=== PATIENT | male | born 1945 | race Two or more races ===

== ENCOUNTER → 2024-09-17 | Outpatient (CLI) | payer MEDICARE, MEDICAID, SELFPAY ==
--- NOTE | 2024-09-17 | XR_ITS ---
Examination: Foot, left, 3 views Technique: AP, oblique, lateral views foot, 3 views Date and time of exam: September 17, 2024 1212 hours INDICATIONS: Left foot swelling and pain beginning one year ago. FINDINGS: Severe osteopenia No fracture No cortical bone destruction 12 mm plantar bony calcaneal spur 4 mm posterior bony calcaneal spur Soft tissue vascular calcification IMPRESSION: No fracture No cortical bone destruction Large plantar bony calcaneal spur
[2024-09-17 13:10] LABS: Basophils # (Auto) 0.1 Thou/mm3 (0.0-0.2); Basophils % (Auto) 1 % (0-2.5); Eosinophils # (Auto) 0.1 Thou/mm3 (0.0-0.5); Eosinophils % (Auto) 1 % (0-10); Hemoglobin 13.6 g/dL (13.5-16.0); Immature Granulocytes % (Auto) 0 % (0-0); Immature Granulocytes Auto 0.03 Thou/mm3 (0.00-0.00); Lymphocytes # (Auto) 1.5 Thou/mm3 (1.0-4.8); Lymphocytes % (Auto) 19 % (10-50); Mean Corpuscular Hemoglobin 30.9 pg (25.0-35.0); Mean Corpuscular Volume 91 fL (80-100); Monocytes # (Auto) 0.6 Thou/mm3 (0.0-0.8); Monocytes % (Auto) 8 % (0-12); Neutrophils # (Auto) 5.4 Thou/mm3 (1.8-7.7); Neutrophils % (Auto) 71 % (37-80); Nucleated Red Blood Cell % 0 /100 WBC (0); Platelet Count 277 Thou/mm3 (140-440); RDW Standard Deviation 46.5 fL (35.1-43.9); White Blood Count 7.6 Thou/mm3 (3.8-10.6)
[2024-09-17 13:21] LABS: Glucose Estimated Average 235 mg/dL (80-131); Hemoglobin A1C 9.8 % Hgb (4.8-6.0)
[2024-09-17 13:30] LABS: Alanine Aminotransferase 27 U/L (10-49); Albumin, Serum 4.3 gm/dL (3.4-4.8); Albumin/Globulin Ratio 1.7 (1.2-2.2); Alkaline Phosphatase 101 U/L (46-116); Anion Gap 8 (7-16); Aspartate Amino Transferase 20 U/L (0-34); BUN/Creatinine Ratio 29 Ratio (12-20); Bilirubin,Total 0.6 mg/dL (0.3-1.2); Blood Urea Nitrogen 23 mg/dL (9-23); Calcium 9.8 mg/dL (8.3-10.6); Calcium (Corrected) 9.8 mg/dL (8.5-10.1); Carbon Dioxide 26.7 mMol/L (20.0-31.0); Chloride 104 mMol/L (98-107); Creatinine (Component) 0.8 mg/dL (0.6-1.3); Globulin 2.5 gm/dL (2.3-3.5); Glucose 184 mg/dL (74-106); Osmolality,Calculated 286 (275-295); Potassium 4.7 mMol/L (3.4-5.1); Sodium 139 mMol/L (136-145); Total Protein 6.8 gm/dL (5.7-8.2); eGFR > 60 See Note
== END | disposition home or self-care (01) ==
LOC: CDIM 11:23 → COPL 12:40
PROVIDERS: Podiatrist; PCP Family Medicine; Referring Provider Nurse Practitioner Family; Visit Provider Radiology Diagnostic Radiology
DX: M77.32 Calcaneal spur, left foot (principal); I10 Essential (primary) hypertension; E11.65 Type 2 diabetes mellitus with hyperglycemia
CPT/HCPCS: 36415; 73630; 80053; 83036; 85025

== ENCOUNTER 2024-10-16 11:24 | Emergency (ER) | payer MEDICARE, MEDICAID, SELFPAY ==
[2024-10-16 11:35] VITALS: BP 119/75; PULSE 89; RESP 18; TEMP 36.6; O2SAT 92; BMI 35.2
--- NOTE | 2024-10-16 11:37 | XR_ITS ---
Examination: PA chest single view TECHNIQUE: Upright PA chest single view Exam date and time: October 16, 2024 1151 hours Comparison July 15, 2024 INDICATIONS: Shortness of breath beginning 3 weeks ago, history shoulder fracture FINDINGS: Mild prominence left ventricle Opacity left base consistent with pneumonia Cardiac leads satisfactory position No pulmonary edema IMPRESSION: Mild pneumonia left base
--- NOTE | 2024-10-16 11:40 | PD.EDRME ---
Rapid Medical Screening Exam RME Arrival date/time: 10/16/24 11:24 78-year-old male with history of hypertension diabetes and CHF presents to the emergency department today with complaints of shortness of breath Per the patient's son they called Dr. Wang's office prior to coming to the ER Chief Complaint: Shortness of Breath/Dyspnea Vital signs: Vital Signs Temperature 97.9 F 10/16/24 11:35 Pulse Rate 89 10/16/24 11:35 Respiratory Rate 18 10/16/24 11:35 Blood Pressure 119/75 10/16/24 11:35 Pulse Oximetry (%) 92 L 10/16/24 11:35 Oxygen Delivery Method Room Air 10/16/24 11:35
[2024-10-16 12:16] LABS: Basophils % (Auto) 1 % (0-2.5); Eosinophils # (Auto) 0.1 Thou/mm3 (0.0-0.5); Eosinophils % (Auto) 1 % (0-10); Hematocrit 39.8 % (41.0-53.0); Hemoglobin 13.8 g/dL (13.5-16.0); Immature Granulocytes % (Auto) 0 % (0-0); Immature Granulocytes Auto 0.02 Thou/mm3 (0.00-0.00); Lymphocytes # (Auto) 1.7 Thou/mm3 (1.0-4.8); Lymphocytes % (Auto) 25 % (10-50); Mean Corpuscular HGB Conc 34.7 g/dl (31.0-37.0); Mean Corpuscular Volume 89 fL (80-100); Monocytes # (Auto) 0.6 Thou/mm3 (0.0-0.8); Monocytes % (Auto) 8 % (0-12); Neutrophils # (Auto) 4.3 Thou/mm3 (1.8-7.7); Neutrophils % (Auto) 65 % (37-80); Nucleated Red Blood Cell % 0 /100 WBC (0); Platelet Count 231 Thou/mm3 (140-440); RDW Standard Deviation 44.4 fL (35.1-43.9); Red Blood Count 4.45 Miln/mm3 (4.50-5.90); White Blood Count 6.7 Thou/mm3 (3.8-10.6)
[2024-10-16 12:35] LABS: INR 1.3 (0.9-1.3); Partial Thromboplastin Time 37.3 Seconds (22.0-36.0)
[2024-10-16 12:37] LABS: B-Type Natriuretic Peptide 137 pg/mL (0-100)
[2024-10-16 12:38] LABS: Alanine Aminotransferase 19 U/L (10-49); Albumin, Serum 4.2 gm/dL (3.4-4.8); Albumin/Globulin Ratio 1.7 (1.2-2.2); Alkaline Phosphatase 107 U/L (46-116); Anion Gap 8 (7-16); Aspartate Amino Transferase 17 U/L (0-34); BUN/Creatinine Ratio 22 Ratio (12-20); Bilirubin,Total 0.5 mg/dL (0.3-1.2); Blood Urea Nitrogen 20 mg/dL (9-23); Calcium 9.3 mg/dL (8.3-10.6); Calcium (Corrected) 9.3 mg/dL (8.5-10.1); Carbon Dioxide 26.1 mMol/L (20.0-31.0); Chloride 102 mMol/L (98-107); Creatinine (Component) 0.9 mg/dL (0.6-1.3); Globulin 2.5 gm/dL (2.3-3.5); Glucose 354 mg/dL (74-106); Magnesium 1.8 mg/dL (1.6-2.6); Osmolality,Calculated 288 (275-295); Potassium 5.2 mMol/L (3.4-5.1); Sodium 136 mMol/L (136-145); Total Protein 6.7 gm/dL (5.7-8.2); Troponin I < 0.020 ng/mL (0.0-0.045); eGFR > 60 See Note
[2024-10-16 15:01] VITALS: BP 124/76; PULSE 84; RESP 20; TEMP 36.8; O2SAT 95
--- NOTE | 2024-10-16 15:06 | PD.EDSOB ---
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 Wang's office prior to coming to the ER DR. LOWE MAIN ED EVALUATION: 78 year old male with past medical history significant for hypertension, diabetes, hyperlipidemia, on blood thinners presents to the Emergency Department with complaints of shortness of breath and nonradiating substernal chest pain. Patient states that his shortness of breath is worse with walking short distances. States he feels short of breath then anxious after walking. Sees Dr. Wang cardiology. Symptoms are mild to moderate. Denies cough, fever. Related Data Home Medications ?Medication ?Instructions ?Recorded ?Confirmed gabapentin 100 mg capsule 300 mg PO QDAY 06/24/21 07/22/24 lovastatin 40 mg tablet 40 mg PO QPM 06/24/21 07/22/24 insulin glargine 100 unit/mL 40 unit subcut QDAY 10/07/21 07/22/24 subcutaneous solution (Lantus U-100 Insulin) insulin human U-100 NPH-regulr 30 unit subcut QDAY 10/07/21 07/22/24 70-30 mix 100 unit/mL subcutaneous susp (Humulin 70/30 U-100 Insulin) lisinopril 10 mg tablet 10 mg PO DAILY 11/12/21 07/22/24 carvedilol 25 mg tablet 25 mg PO BID 04/26/22 07/22/24 memantine 10 mg tablet 10 mg PO BID 04/26/22 07/22/24 finasteride 5 mg tablet 5 mg PO QDAY 02/28/23 07/22/24 metformin 1,000 mg tablet 1,000 mg PO BID 02/28/23 07/22/24 tamsulosin 0.4 mg capsule 0.8 mg PO QHS 02/28/23 07/22/24 oxybutynin chloride 5 mg tablet 5 mg PO BID 03/30/23 07/22/24 rivaroxaban 15 mg tablet (Xarelto) 15 mg PO QDAY 03/30/23 07/22/24 donepezil 5 mg tablet 5 mg PO QDAY 08/28/23 07/22/24 duloxetine 60 mg capsule,delayed 60 mg PO QDAY 07/22/24 07/22/24 release Allergies Allergy/AdvReac Type Severity Reaction Status Date / Time No Known Allergies Allergy Verified 10/16/24 11:26 Review of Systems Review of Systems Systems Reviewed: All systems reviewed, normal except as documented Narrative Review of Systems: GEN: No fever, no chills, no weight loss EYES: No discharge, no visual changes, no pain HEENT: No ear pain, no congestion, no sore throat PULM: + shortness of breath, no cough, no congestion CV: + chest pain, no dyspnea on exertion, no palpitations GI: No nausea, no vomiting, no diarrhea, no pain, no constipation : No frequency, no urgency and no dysuria MUSC/SKEL: No joint pain, no back pain SKIN: No rash PSYCH: No hallucinations, no depression HEME/LYMPH: No easy bleeding or bruising tendencies NEURO: No weakness, no headache Past Medical History Past Medical History NEUROLOGIC: Negative Neurological Disorders or Seizures CARDIAC: Positive Atrial Fibrillation, Hypercholesterolemia and Hypertension; Negative Cardiac Disorders or Congestive Heart Failure RESPIRATORY: Positive Chronic Obstructive Pulmonary Disease (COPD) and Sleep Apnea; Negative Asthma GASTROINTESTINAL: Positive Gastrointestinal Disorders, Gastroesophageal Reflux Disease and Obesity; Negative Hepatitis GENITOURINARY: Positive Genitourinary Disorders and Benign Prostatic Hyperplasia; Negative Renal Disease MUSCULOSKELETAL: Positive Musculoskeletal Disorders and Fractures ENT: Positive Cataracts ENDOCRINE: Positive Endocrine Disorders and Diabetes Mellitus Type 2; Negative Diabetes Mellitus Type 1 HEMATOLOGIC: Positive Anemia; Negative Blood Disorders, Sickle Cell Disease or Clotting Problems OTHER HISTORY: Positive Hospitalization and Falls; Negative Autoimmune Disease, Shingles, Blood Transfusions, Blood Transfusion Reaction, Anesthesia Reactions, Organ Transplant, Chemotherapy, Radiation Therapy, MRSA, Chicken Pox, Measles, Mumps or Cancer Family History FAMILY HISTORY: Positive Family Cardiac Disorders Surgical History SURGICAL: Positive Cardiac Surgery, Pacemaker and Joint Replacement; Negative Endocrine Surgery, Abdominal Surgery, Neurologic Surgery, Vasectomy or Organ Transplant Social History SMOKING STATUS: Never smoker ED Exam General Limitations: Present no limitations General appearance: Present alert and in no apparent distress Head Head exam: Present atraumatic Eye Eye exam: Present normal appearance, PERRL and EOMI ENT ENT exam: Present normal exam, normal oropharynx and mucous membranes moist Neck Neck exam: Present normal inspection, full ROM and trachea midline Chest Chest inspection: Present normal inspection and symmetric chest wall rise Respiratory Respiratory exam: Present normal lung sounds bilaterally Cardiovascular Cardiovascular exam: Present regular rate, normal rhythm and normal heart sounds Abdominal Exam Abdominal exam: Present soft and normal bowel sounds Extremities Exam Extremities exam: Present normal inspection, full ROM and pedal edema (R>L) Back Exam Back exam: Present normal inspection and full ROM Neurological Exam Neurological exam: Present alert, oriented X3 and CN II-XII intact Psychiatric Psychiatric exam: Present normal affect and normal mood Skin Skin exam: Present warm, dry, intact and normal color Course Quality Measures none Orders Category Date Time Status Health Care Technician NOW Care 10/16/24 11:37 Completed EKG (ED ONLY) *Do not use* NOW Care 10/16/24 11:37 Completed EKG (ED Only) Stat Exams 10/16/24 11:37 Ordered XR chest 1V portable Stat Exams 10/16/24 11:37 Completed B-Type Natriuretic Peptide Stat Lab 10/16/24 12:08 Completed CBC Stat Lab 10/16/24 12:08 Completed Comprehensive Metabolic Panel Stat Lab 10/16/24 12:08 Completed D-Dimer Stat Lab 10/16/24 15:50 Completed Magnesium Stat Lab 10/16/24 12:08 Completed Partial Thromboplastin Time Stat Lab 10/16/24 12:08 Completed Prothrombin Time with INR Stat Lab 10/16/24 12:08 Completed Troponin I Stat Lab 10/16/24 12:08 Completed Troponin I Stat Lab 10/16/24 15:50 Completed Vital Signs Vital signs: Vital Signs Temperature 97.9 F 10/16/24 11:35 Pulse Rate 89 10/16/24 11:35 Respiratory Rate 18 10/16/24 11:35 Blood Pressure 119/75 10/16/24 11:35 Pulse Oximetry (%) 92 L 10/16/24 11:35 Oxygen Delivery Method Room Air 10/16/24 11:35 Shortness of Breath / Dyspnea MDM Narrative MDM Narrative:: IMae, bethel scribing for and in the presence of Dr. Lowe. Patient data External records reviewed:: [facility] previous records (Reviewed last urology note by Dr. Younger, dated 07/25/24.) Clinical information provided by:: patient and family Social determinants that could affect healthcare access:: none Patient has the following chronic illnesses:: Hypertension, diabetes, hyperlipidemia, on blood thinners How is presenting disease/condition affected by chronic disease/condition?: exacerbated by Evaluation data The following diagnostics were reviewed and interpreted by me:: lab results and radiology exam(s) Lab and/or radiology exams considered but not ordered:: none Interpretation Summary: Procedure(s): XR chest 1V portable Accession Number(s): [id number] cc: Cira JAKCSON),Momo PATEL; Jason Mace MD~ Examination: PA chest single view TECHNIQUE: Upright PA chest single view Exam date and time: October 16, 2024 1151 hours Comparison July 15, 2024 INDICATIONS: Shortness of breath beginning 3 weeks ago, history shoulder fracture FINDINGS: Mild prominence left ventricle Opacity left base consistent with pneumonia Cardiac leads satisfactory position No pulmonary edema IMPRESSION: Mild pneumonia left base Dictated By: Jason Mace MD Medications / Prescriptions Medications or Prescriptions considered but not ordered:: none Medication administrations:: see above if any Consultations Consultation(s) initiated? (list below): Yes Consultation #1 (Physician, Specialty, Details): Discussed with Dr. Wang. Reviewed results. Per Dr. Wang patient may follow up in his office on Monday. Advised nurse to tell patient to call office for appointment time. Diagnosis Shortness of Breath Differential Diagnosis: acute exacerbation of chronic obstructive airways disease, congestive heart failure, community acquired pneumonia and pulmonary embolism Most likely diagnosis given after review of the tests above:: Dyspnea Chest pain Admission Indicated Admission indicated?: not indicated Admission Request Was there a request for admission?: No Disposition Plan Disposition Plan: Discharge Discharge Attestation Discharge Attestation: The patient and all family members were given an opportunity to ask questions and understood the discharge instructions. Discharge instructions specifically effects, indications for sooner follow up or return to the emergency department, and the expected course of current diagnosis. Patient condition: Stable Discharge Plan Plan Patient Disposition: HOME (Self Care) Prescriptions/Referrals Prescriptions/Med Rec: No Action carvedilol 25 mg tablet 25 mg PO BID Rx Instructions: must administer with a meal/food memantine 10 mg tablet 10 mg PO BID metformin 1,000 mg tablet 1,000 mg PO BID tamsulosin 0.4 mg capsule 0.8 mg PO QHS finasteride 5 mg tablet 5 mg PO QDAY donepezil 5 mg tablet 5 mg PO QDAY duloxetine 60 mg capsule,delayed release(DR/EC) 60 mg PO QDAY insulin glargine [Lantus U-100 Insulin] 100 unit/mL solution 40 unit SUBCUT QDAY Rx Instructions: sliding scale Humulin 70/30 U-100 Insulin 100 unit/mL (70-30) suspension 30 unit SUBCUT QDAY Rx Instructions: sliding scale lovastatin 40 mg tablet 40 mg PO QPM Patient Comments: TOME MIGUELINA CULLENA TODOUlisses LOS D AL [employer] gabapentin 100 mg capsule 300 mg PO QDAY Patient Comments: TAKE 1 CAPSULE 3 TIMES A DAY BY ORAL ROUTE FOR 30 DAYS. lisinopril 10 mg tablet 10 mg PO DAILY oxybutynin chloride 5 mg Tablet 5 mg PO BID Xarelto 15 mg Tablet 15 mg PO QDAY Rx Instructions: must administer with evening meal Referrals: Stefano Galicia[facility]MD [Primary Care Provider] - In 1 week Hakan Wang MD [Physician] - None Problem List Clinical Impression: Dyspnea, Chest pain Patient/Caregiver Discharge Instructions Education Materials: ED Chest Pain, Uncertain Cause, ED Shortness of Breath (Dyspnea) Additional Instructions: Follow up with Dr. Wang. Call office for appointment. Print Language: [place] Island[place] Stand Alone Forms: [employer] Award Info., Patient Portal Info Letter
[2024-10-16 15:11] VITALS: BP 116/76; PULSE 84; RESP 16; TEMP 36.7; O2SAT 93
[2024-10-16 16:24] LABS: D-Dimer 277 ng/mL (<600)
[2024-10-16 16:31] LABS: Troponin I < 0.020 ng/mL (0.0-0.045)
--- NOTE | 2024-10-16 17:31 | PC.NURSE ---
DC paperwork given to pt. and son. Pt. son states that the reason they were here is to get an echocardiogram per [employer]. He also wants to know if he has got pneumonia per staff member that disclosed results. Per Dr. Lowe, she did not know about echocardiogram and states he does not have pneumonia. Dr. Lowe called [employer] and states no need for echo at this time. Information given to pt. and son and DC paperwork explained.
== END 2024-10-16 17:42 | disposition home or self-care (01) ==
PROVIDERS: Nurse Practitioner Primary Care; Emergency Provider Emergency Medicine; PCP Family Medicine
DX: J44.0 Chronic obstructive pulmonary disease with (acute) lower respiratory infection (principal); J18.9 Pneumonia, unspecified organism; R07.9 Chest pain, unspecified; I11.0 Hypertensive heart disease with heart failure; I50.9 Heart failure, unspecified; E78.00 Pure hypercholesterolemia, unspecified; I48.91 Unspecified atrial fibrillation; Z79.01 Long term (current) use of anticoagulants
CPT/HCPCS: 36415; 71045; 80053; 83735; 83880; 84484; 85025; 85379; 85610; 85730; 93005; 99284

== ENCOUNTER → 2024-10-24 | Outpatient (CLI) | payer MEDICARE, MEDICAID, SELFPAY ==
--- NOTE | 2024-10-24 14:03 | XR_ITS ---
Examination: PA lateral chest 2 views TECHNIQUE: Upright PA lateral chest 2 views Exam date and time: October 24, 2024 1427 hours Comparison October 16, 2024 INDICATIONS: Coughing shortness of breath congestion this week, left base pneumonia on chest film October 16, 2024 FINDINGS: Persistent pneumonia left base Mild enlargement cardiac contour Cardiac leads satisfactory position Also mild pneumonia right base Moderate osteopenia IMPRESSION: Bibasilar pneumonia
== END | disposition home or self-care (01) ==
PROVIDERS: PCP Nurse Practitioner Family; Referring Provider Nurse Practitioner Family; Visit Provider Nurse Practitioner Family
DX: J18.9 Pneumonia, unspecified organism (principal)
CPT/HCPCS: 71046

== ENCOUNTER → 2024-11-05 | Outpatient (CLI) | payer MEDICARE, MEDICAID, SELFPAY ==
--- NOTE | 2024-11-05 13:58 | XR_ITS ---
Examination: PA lateral chest 2 views TECHNIQUE: Upright PA lateral chest 2 views Exam date and time: November 05, 2024 1500 hours Comparison October 24, 2024 INDICATIONS: Coughing congestion this week. FINDINGS: Mild opacity left base consistent with pneumonia Mild enlargement cardiac contour Cardiac leads satisfactory position Prominent osteopenia IMPRESSION: Mild left base pneumonia
== END | disposition home or self-care (01) ==
PROVIDERS: PCP Nurse Practitioner Family; Referring Provider Nurse Practitioner Family; Visit Provider Nurse Practitioner Family
DX: J18.9 Pneumonia, unspecified organism (principal)
CPT/HCPCS: 71046

== ENCOUNTER → 2024-11-15 | Outpatient (CLI) | payer MEDICARE, MEDICAID, SELFPAY ==
--- NOTE | 2024-11-15 14:59 | XR_ITS ---
Examination: PA lateral chest 2 views TECHNIQUE: Upright PA lateral chest 2 views Exam date and time: November 15, 2024 1513 hours Comparison November 05, 2024 INDICATIONS: Coughing congestion today. FINDINGS: Mild opacity left base Mild enlargement cardiac contour Cardiac leads satisfactory position Moderate osteopenia IMPRESSION: Mild left base pneumonia
== END | disposition home or self-care (01) ==
LOC: CDIM 14:35
PROVIDERS: PCP Nurse Practitioner Family; Referring Provider Nurse Practitioner Family; Visit Provider Nurse Practitioner Family
DX: J18.9 Pneumonia, unspecified organism (principal)
CPT/HCPCS: 71046

== ENCOUNTER → 2024-12-04 | Outpatient (CLI) | payer MEDICARE, MEDICAID, SELFPAY ==
--- NOTE | 2024-12-04 13:55 | XR_ITS ---
Examination: PA lateral chest 2 views TECHNIQUE: Upright PA lateral chest 2 views Exam date and time: December 04, 2024 1406 hours INDICATIONS: Difficulty breathing beginning 2 days ago. FINDINGS: Mild enlargement cardiac contour Moderate vascular congestion. Mild pneumonia left base Cardiac leads satisfactory position IMPRESSION: Moderate vascular congestion Mild pneumonia left base
== END | disposition home or self-care (01) ==
PROVIDERS: PCP Family Medicine; Referring Provider Nurse Practitioner Family; Visit Provider Nurse Practitioner Family
DX: J18.1 Lobar pneumonia, unspecified organism (principal); R09.89 Other specified symptoms and signs involving the circulatory and respiratory systems
CPT/HCPCS: 71046

== ENCOUNTER → 2024-12-05 | Outpatient (CLI) | payer MEDICARE, MEDICAID, SELFPAY ==
[2024-12-05 09:03] LABS: Glucose Estimated Average 212 mg/dL (80-131)
[2024-12-05 09:15] LABS: Alanine Aminotransferase 15 U/L (10-49); Albumin, Serum 3.8 gm/dL (3.4-4.8); Albumin/Globulin Ratio 1.7 (1.2-2.2); Alkaline Phosphatase 81 U/L (46-116); Anion Gap 7 (7-16); Aspartate Amino Transferase 15 U/L (0-34); BUN/Creatinine Ratio 34 Ratio (12-20); Bilirubin,Direct 0.1 mg/dL (0.0-0.3); Bilirubin,Total 0.4 mg/dL (0.3-1.2); Blood Urea Nitrogen 24 mg/dL (9-23); Calcium 9.3 mg/dL (8.3-10.6); Calcium (Corrected) 9.5 mg/dL (8.5-10.1); Carbon Dioxide 27.4 mMol/L (20.0-31.0); Cardiac Risk Estimate 2.6 RATIO (4.0-6.7); Chloride 107 mMol/L (98-107); Cholesterol 97 mg/dL (132-200); Creatinine (Component) 0.7 mg/dL (0.6-1.3); Globulin 2.2 gm/dL (2.3-3.5); Glucose 92 mg/dL (74-106); HDL Cholesterol 38 mg/dL (40-60); LDL Cholesterol,Calculated 35 mg/dL (0-130); Osmolality,Calculated 285 (275-295); Potassium 4.5 mMol/L (3.4-5.1); Sodium 141 mMol/L (136-145); Triglycerides 122 mg/dL (30-150); eGFR > 60 See Note
== END | disposition home or self-care (01) ==
PROVIDERS: PCP Family Medicine; Referring Provider Internal Medicine; Visit Provider Internal Medicine
DX: R07.89 Other chest pain (principal)
CPT/HCPCS: 36415; 80053; 80061; 82248; 83036; 84100

== ENCOUNTER → 2024-12-11 | Outpatient (CLI) | payer MEDICARE, MEDICAID, SELFPAY ==
[2024-12-12 13:37] LABS: Cocci Serology, IgM Negative (Negative)
[2024-12-13 12:01] LABS: Cocci Serology, IgG Negative (Negative)
== END | disposition home or self-care (01) ==
PROVIDERS: PCP Family Medicine; Referring Provider Nurse Practitioner Family; Visit Provider Nurse Practitioner Family
DX: R61 Generalized hyperhidrosis (principal)
CPT/HCPCS: 36415; 86331; 86635

== ENCOUNTER → 2024-12-19 | Outpatient (CLI) | payer MEDICARE, MEDICAID, SELFPAY ==
--- NOTE | 2024-12-20 14:30 | ECHO_ITS ---
Transthoracic Echo Report Ht (in): 65 Wt (lb): 230 Exam Location: Echo Lab Status: Outpatient Heat Treat Supervisor: MARIELA Pierre^^^^ Indications: Procedure Performed: BP: / HR: Technical Quality: Very technically difficult study MEASUREMENTS (Male / Female) Normal Values 2D ECHO LV Diastolic Diameter PLAX 3.8 cm 4.2 - 5.9 / 3.9 - 5.3 cm LV Systolic Diameter PLAX 2.6 cm IVS Diastolic Thickness 1.1 cm 0.6 - 1.0 / 0.6 - 0.9 cm LVPW Diastolic Thickness 1.2 cm 0.6 - 1.0 / 0.6 - 0.9 cm LV Relative Wall Thickness 0.6 LVOT Diameter 1.9 cm Aortic Root Diameter 3.7 cm LA Systolic Diameter LX 3.1 cm 3.0 - 4.0 / 2.7 - 3.8 cm DOPPLER AV Peak Velocity 123.0 cm/s AV Peak Gradient 6.1 mmHg AV Mean Gradient 4.0 mmHg AV Velocity Time Integral 27.9 cm AI Peak Velocity 270.0 cm/s AI Peak Gradient 29.2 mmHg AI Pressure Half Time 640.0 ms LVOT Peak Velocity 128.0 cm/s LVOT Peak Gradient 6.6 mmHg LVOT Velocity Time Integral 31.8 cm AV Area Cont Eq vti 3.2 cm? AV Area Cont Eq pk 3.0 cm? MV Area PHT 3.1 cm? Mitral E Point Velocity 67.4 cm/s Mitral A Point Velocity 114.0 cm/s Mitral E to A Ratio 0.6 TR Peak Velocity 246.0 cm/s TR Peak Gradient 24.2 mmHg FINDINGS Left Ventricle Normal left ventricular size, wall thickness, systolic function with no obvious regional wall motion abnormalities. There is grade I diastolic dysfunction of the left ventricle (impaired relaxation pattern). The left ventricular ejection fraction is normal, estimated at 55-60%. Right Ventricle The right ventricle is normal in size and systolic function. The estimated right ventricular systolic pressure, 25 mmHg. Left Atrium The left atrium is normal by two-dimensional, color flow and Doppler imaging with no structural abnormalities, no thrombus formation present. Right Atrium Right atrium is not well visualized. Atrial Septum The interatrial septum appears normal with no evidence of a shunt. Aorta The aorta is normal by two-dimensional, color flow and Doppler interrogation. Mitral Valve Trace to mild mitral regurgitation. Mild mitral annular calcification. Aortic Valve The aortic valve is trileaflet and normal by two-dimensional, color flow and Doppler interrogation. There is no significant aortic valve regurgitation. Tricuspid Valve There is mild tricuspid valve regurgitation. Pulmonic Valve Trivial pulmonic valve regurgitation. Vessels The pulmonary artery appears normal. The inferior vena cava pulmonary and hepatic veins appear normal. Pericardium The pericardium is normal by two-dimensional imaging. There is no significant pericardial effusion. CONCLUSIONS indication: wheezing. Patient in wheelchair cannot get up very TDS The transthoracic study is normal by two-dimensional, color flow imaging and Doppler interrogation. Normal left ventricular size and function. Approximate ejection fraction is 60%. Trace mitral and trace tricuspid regurgitation No wall motion abnormalities Jessica Aviles (Electronically Signed) Final Date: 20 December 2024 14:06
== END | disposition home or self-care (01) ==
LOC: SDIM 14:11
PROVIDERS: PCP Family Medicine; Referring Provider Internal Medicine; Visit Provider Internal Medicine
DX: I08.1 Rheumatic disorders of both mitral and tricuspid valves (principal)
CPT/HCPCS: 93306

== ENCOUNTER 2025-01-01 16:15 | Emergency (ER) | payer MEDICARE, MEDICAID, SELFPAY ==
[2025-01-01 16:17] VITALS: BMI 37.4
[2025-01-01 16:45] VITALS: BP 120/64; PULSE 78; RESP 22; TEMP 36.3; O2SAT 91; BMI 37.4
--- NOTE | 2025-01-01 17:08 | XR_ITS ---
Examination: CT abdomen and pelvis without contrast. Coronal 3-D reconstructions. Sagittal 2-D reconstructions. Date and time of exam:January 01, 2025 1736 hours INDICATIONS: Onset generalized abdominal pain today CTDI: vol (mGy): 13.5 DLP: (mGycm): 947 Technique: Axial images of the abdomen have been obtained, 3 mm slice thickness Intravenous contrast material has not been administered. Low dose protocols were performed. One or more of the following dose reduction techniques were used; automated exposure control, adjustment of the mA and/or KV according to patient size, use of iterative reconstruction technique. Findings: 8mm liver cyst Absent gallbladder Spleen is not enlarged No pancreatic or adrenal mass posterior left perinephric stranding axial image 121 Appendix is mildly thickened, for instance axial image 162, measuring up to 10 mm No bowel obstruction No diverticulitis Contracted urinary bladder Left hip bipolar hemiarthroplasty with satisfactory alignment Moderate to advanced narrowing right hip joint IMPRESSION: The appendix is mildly thickened, measuring up to 10 mm, recommend repeat CT scan abdomen pelvis post intravenous contrast as clinically warranted There is posterior left perinephric stranding which may relate to pyelonephritis, which can also be best assessed with follow-up CT scan of the abdomen postcontrast
--- NOTE | 2025-01-01 17:08 | EKG_ITS ---
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
--- NOTE | 2025-01-01 17:08 | XR_ITS ---
Examination: PA lateral chest 2 views TECHNIQUE: Upright PA lateral chest 2 views Exam date and time: January 01, 2025 1719 hours Comparison December 04, 2024 INDICATIONS: Chest pain today. FINDINGS: Mild opacity left base laterally Mild prominence of ventricle Cardiac leads satisfactory position No pulmonary edema Moderate osteopenia IMPRESSION: Scarring versus mild pneumonia left base, clinical correlation advised
--- NOTE | 2025-01-01 17:09 | PD.EDRME ---
Rapid Medical Screening Exam RME Arrival date/time: 01/01/25 16:15 79-year-old male presents emergency department complaint of abdominal pain shortness of breath and elevated blood sugar Chief Complaint: Chest Pain Time Seen by Provider: 01/01/25 17:05 Vital signs: Vital Signs Temperature 97.4 F 01/01/25 16:45 Pulse Rate 78 01/01/25 16:45 Respiratory Rate 22 H 01/01/25 16:45 Blood Pressure 120/64 01/01/25 16:45 Pulse Oximetry (%) 91 L 01/01/25 16:45 Oxygen Delivery Method Room Air 01/01/25 16:45
[2025-01-01 17:52] LABS: Base Excess, Venous 7 (-3-3); O2 Saturation, Venous 68 % (96-97); PCO2, Venous 37 mmHg (36-56); PO2, Venous 33 mmHg (15-58); pH, Venous 7.52 (7.33-7.66)
[2025-01-01 17:55] LABS: Basophils % (Auto) 0 % (0-2.5); Eosinophils % (Auto) 0 % (0-10); Hematocrit 39.2 % (41.0-53.0); Hemoglobin 13.5 g/dL (13.5-16.0); Immature Granulocytes % (Auto) 0 % (0-0); Immature Granulocytes Auto 0.02 Thou/mm3 (0.00-0.00); Lymphocytes # (Auto) 1.7 Thou/mm3 (1.0-4.8); Lymphocytes % (Auto) 18 % (10-50); Mean Corpuscular HGB Conc 34.4 g/dl (31.0-37.0); Mean Corpuscular Hemoglobin 30.8 pg (25.0-35.0); Mean Corpuscular Volume 89 fL (80-100); Monocytes # (Auto) 0.7 Thou/mm3 (0.0-0.8); Monocytes % (Auto) 8 % (0-12); Neutrophils # (Auto) 6.7 Thou/mm3 (1.8-7.7); Neutrophils % (Auto) 73 % (37-80); Nucleated Red Blood Cell % 0 /100 WBC (0); Platelet Count 285 Thou/mm3 (140-440); RDW Standard Deviation 43.4 fL (35.1-43.9); Red Blood Count 4.39 Miln/mm3 (4.50-5.90); White Blood Count 9.2 Thou/mm3 (3.8-10.6)
[2025-01-01 17:58] LABS: Beta Hydroxybutyrate 0.3 mmol/L (<0.6)
[2025-01-01 18:08] LABS: INR 1.4 (0.9-1.3); Partial Thromboplastin Time 35.9 Seconds (22.0-36.0); Prothrombin Time 15.4 Seconds (9.0-12.2)
[2025-01-01 18:17] LABS: B-Type Natriuretic Peptide 67 pg/mL (0-100)
[2025-01-01 18:18] VITALS: BP 113/75; PULSE 77; RESP 12; TEMP 36.5; O2SAT 98
[2025-01-01 18:23] VITALS: BP 113/75; PULSE 72; RESP 24; TEMP 36.6; O2SAT 99
--- NOTE | 2025-01-01 18:28 | PC.NURSE ---
PATIENT PRESENTS TO ER WITH COMPLAINT OF WEAKNESS AND HEADACHE X 3 DAYS. PATIENT SENT TO ER BY PRIMARY DUE TO HIGH BLOOD SUGAR INTO THE 500's. PATIENT STATES TAKES MEDICATIONS A PRESCRIBED AND FAMILY MEMBER STATES HE IS NORMALLY GOOD ABOUT HIS DIET. PATIENT PLACED ON 2LNC DUE TO 89% RA. PATIENT STATES HE USES O2 AT HOME WELL 2LNC.
[2025-01-01 18:29] LABS: Alanine Aminotransferase 17 U/L (10-49); Albumin/Globulin Ratio 1.4 (1.2-2.2); Alkaline Phosphatase 102 U/L (46-116); Anion Gap 10 (7-16); Aspartate Amino Transferase 16 U/L (0-34); BUN/Creatinine Ratio 31 Ratio (12-20); Bilirubin,Total 0.4 mg/dL (0.3-1.2); Blood Urea Nitrogen 49 mg/dL (9-23); Calcium 9.7 mg/dL (8.3-10.6); Calcium (Corrected) 9.7 mg/dL (8.5-10.1); Carbon Dioxide 29.8 mMol/L (20.0-31.0); Chloride 94 mMol/L (98-107); Creatinine (Component) 1.6 mg/dL (0.6-1.3); Estimated Creatinine Clearance 39.8 mL/min (>60); Globulin 2.9 gm/dL (2.3-3.5); Lipase 35 U/L (12-53); Magnesium 1.8 mg/dL (1.6-2.6); Osmolality,Calculated 298 (275-295); Potassium 4.3 mMol/L (3.4-5.1); Sodium 134 mMol/L (136-145); Total Protein 6.9 gm/dL (5.7-8.2); Troponin I < 0.020 ng/mL (0.0-0.045); eGFR 43 See Note
[2025-01-01 18:51] LABS: Glucose 409 mg/dL (74-106)
[2025-01-01 19:35] VITALS: BP 130/73; PULSE 74; RESP 18; TEMP 36.5; O2SAT 98
--- NOTE | 2025-01-01 19:56 | PD.EDCHEST ---
ED Chest Pain RME/HPI General Chief Complaint: Chest Pain Stated Complaint: BS 530, CHEST PAIN, FATIGUE,DIMINISHED LUNG SOUNDS Time Seen by Provider: 01/01/25 17:05 Source: patient and family Arrival date/time: 01/01/25 16:15 Mode of arrival: ambulatory Limitations: no limitations RME / HPI RME / HPI narrative: 01/01/25 16:15 79-year-old male presents emergency department complaint of abdominal pain shortness of breath and elevated blood sugar. Dr. Vasquez?s Main ED Evaluation: 79-year-old Cameroonian-speaking male accompanied by daughter who presents to the ED sent by MD for hyperglycemia >500. Per daughter, patient reports headache for the last 3 days, dry mouth and nausea. Denies abdominal pain, sweating, or shortness of breath more than the usual. No dysuria, no flank pain, no urinary hesitancy or urgency. Patient is on home oxygen. History includes COPD, HTN, GERD, DM2. Denies history of tobacco use. Related Data Home Medications ?Medication ?Instructions ?Recorded ?Confirmed gabapentin 100 mg capsule 300 mg PO QDAY 06/24/21 07/22/24 lovastatin 40 mg tablet 40 mg PO QPM 06/24/21 07/22/24 insulin glargine 100 unit/mL 40 unit subcut QDAY 10/07/21 07/22/24 subcutaneous solution (Lantus U-100 Insulin) insulin human U-100 NPH-regulr 30 unit subcut QDAY 10/07/21 07/22/24 70-30 mix 100 unit/mL subcutaneous susp (Humulin 70/30 U-100 Insulin) lisinopril 10 mg tablet 10 mg PO DAILY 11/12/21 07/22/24 carvedilol 25 mg tablet 25 mg PO BID 04/26/22 07/22/24 memantine 10 mg tablet 10 mg PO BID 04/26/22 07/22/24 finasteride 5 mg tablet 5 mg PO QDAY 02/28/23 07/22/24 metformin 1,000 mg tablet 1,000 mg PO BID 02/28/23 07/22/24 tamsulosin 0.4 mg capsule 0.8 mg PO QHS 02/28/23 07/22/24 oxybutynin chloride 5 mg tablet 5 mg PO BID 03/30/23 07/22/24 rivaroxaban 15 mg tablet (Xarelto) 15 mg PO QDAY 03/30/23 07/22/24 donepezil 5 mg tablet 5 mg PO QDAY 08/28/23 07/22/24 duloxetine 60 mg capsule,delayed 60 mg PO QDAY 07/22/24 07/22/24 release Allergies Allergy/AdvReac Type Severity Reaction Status Date / Time No Known Allergies Allergy Verified 01/01/25 16:21 Review of Systems Review of Systems Systems Reviewed: All systems reviewed, normal except as documented Past Medical History Past Medical History NEUROLOGIC: Negative Neurological Disorders or Seizures CARDIAC: Positive Atrial Fibrillation, Hypercholesterolemia and Hypertension; Negative Cardiac Disorders or Congestive Heart Failure RESPIRATORY: Positive Chronic Obstructive Pulmonary Disease (COPD) and Sleep Apnea; Negative Asthma GASTROINTESTINAL: Positive Gastrointestinal Disorders, Gastroesophageal Reflux Disease and Obesity; Negative Hepatitis GENITOURINARY: Positive Genitourinary Disorders and Benign Prostatic Hyperplasia; Negative Renal Disease MUSCULOSKELETAL: Positive Musculoskeletal Disorders and Fractures ENT: Positive Cataracts ENDOCRINE: Positive Endocrine Disorders and Diabetes Mellitus Type 2; Negative Diabetes Mellitus Type 1 HEMATOLOGIC: Positive Anemia; Negative Blood Disorders, Sickle Cell Disease or Clotting Problems OTHER HISTORY: Positive Hospitalization and Falls; Negative Autoimmune Disease, Shingles, Blood Transfusions, Blood Transfusion Reaction, Anesthesia Reactions, Organ Transplant, Chemotherapy, Radiation Therapy, MRSA, Chicken Pox, Measles, Mumps or Cancer Family History FAMILY HISTORY: Positive Family Cardiac Disorders Surgical History SURGICAL: Positive Cardiac Surgery, Pacemaker and Joint Replacement; Negative Endocrine Surgery, Abdominal Surgery, Neurologic Surgery, Vasectomy or Organ Transplant Social History SMOKING STATUS: Never smoker ED Exam Narrative Physical exam: GENERAL APPEARANCE: alert and oriented x 4, well-developed, well-nourished, no acute distress VITALS: All vitals were reviewed and the pulse ox is 100% on 2 L/min, which is normal according to my interpretation. HEENT: Normocephalic, atraumatic; pupils equal, round, reactive to light; EOMI; mucous membranes pink, moist; oropharynx clear NECK: Supple LUNGS: CTABL; no wheezes, no rales, no rhonchi HEART: Regular rate, regular rhythm; normal S1, S2; no murmurs ABDOMEN: non distended; normal BS; soft, no tenderness, no guarding, no rebound; no masses, no organomegaly, no hernia, multiple well-healing midline scars anteriorly BACK: no CVA tenderness EXTREMITIES: atraumatic; minimal pitting edema bilaterally NEUROLOGIC: awake; alert and oriented x4; cranial nerves II-XII grossly intact; no focal sensory or motor deficits PSYCHIATRIC: appropriate mood and affect SKIN: warm, dry, normal color; no rashes General Limitations: Present no limitations Course Course Course Narrative: CXR is ordered for determining etiology of chest pain. Quality Measures none Orders Category Date Time Status EKG (ED ONLY) *Do not use* NOW Care 01/01/25 17:08 Completed Glucose [Bedside Blood Glucose] NOW Care 01/01/25 21:15 Completed IV [Insert IV] NOW Care 01/01/25 19:[address] abdomen pelvis wo con Stat Exams 01/01/25 17:08 Completed EKG (ED Only) Stat Exams 01/01/25 17:08 Draft XR chest 2V Stat Exams 01/01/25 17:08 Completed B-Type Natriuretic Peptide Stat Lab 01/01/25 17:39 Completed Beta Hydroxybutyrate Stat Lab 01/01/25 17:39 Completed CBC Stat Lab 01/01/25 17:39 Completed Comprehensive Metabolic Panel Stat Lab 01/01/25 17:39 Completed Lipase Stat Lab 01/01/25 17:39 Completed Magnesium Stat Lab 01/01/25 17:39 Completed Partial Thromboplastin Time Stat Lab 01/01/25 17:39 Completed Prothrombin Time with INR Stat Lab 01/01/25 17:39 Completed Troponin I Stat Lab 01/01/25 17:39 Completed VBG [Venous Blood Gas] Stat Lab 01/01/25 17:39 Completed Sodium Chloride 0.9% 1000 ml [Ns] 1,000 ml Med 01/01/25 19:07 Discontinued IV 999 mls/hr Vital Signs Vital signs: Vital Signs Temperature 97.4 F 01/01/25 16:45 Pulse Rate 78 01/01/25 16:45 Respiratory Rate 22 H 01/01/25 16:45 Blood Pressure 120/64 01/01/25 16:45 Pulse Oximetry (%) 91 L 01/01/25 16:45 Oxygen Delivery Method Room Air 01/01/25 16:45 Chest Pain MDM Narrative MDM Narrative:: There are no signs of DKA or hyperosmolar hyperglycemic state. Patient is clinically dehydrated on labs. We will hydrate the patient and repeat the blood sugar check. 2247: Patient's blood sugar has improved to 304. Patient is eating. I spoke with the patient's son at great length regarding the patient's test results. Patient denies any N/V or abdominal pain. On exam, there is no RLQ tenderness. I educated the patient and his son he is to return if he developed any abdominal pain, nausea or vomiting. They verbalized understanding. He is stable to be discharged home. Scribe Attestation: I, Naty Acevedo, am scribing for and in the presence of Dr. Vasquez. Provider Notation: Although this document has been carefully reviewed, there may still be some phonetic and other typographical errors. These errors are purely grammatical due to imperfections in the software program and should not be construed in any way to compromise the substance of the patient's medical care during this visit. Patient data External records reviewed:: [facility] previous records Clinical information provided by:: patient and family Social determinants that could affect healthcare access:: none Patient has the following chronic illnesses:: See PMH How is presenting disease/condition affected by chronic disease/condition?: uneffected by Evaluation data The following diagnostics were reviewed and interpreted by me:: lab results, radiology exam(s) and EKG tracing(s) Lab and/or radiology exams considered but not ordered:: na Interpretation Summary: I personally reviewed the radiology data and agree with the radiologist's interpretation. Labs reviewed. Normal anion gap. Genesis serum ketones. No DKA. Normal pH on VBG. Patient is prerenal on labs. Examination: PA lateral chest 2 views TECHNIQUE: Upright PA lateral chest 2 views Exam date and time: January 01, 2025 1719 hours Comparison December 04, 2024 INDICATIONS: Chest pain today. FINDINGS: Mild opacity left base laterally Mild prominence of ventricle Cardiac leads satisfactory position No pulmonary edema Moderate osteopenia IMPRESSION: Scarring versus mild pneumonia left base, clinical correlation advised Examination: CT abdomen and pelvis without contrast. Date and time of exam:January 01, 2025 1736 hours INDICATIONS: Onset generalized abdominal pain today Findings: 8mm liver cyst Absent gallbladder Spleen is not enlarged No pancreatic or adrenal mass posterior left perinephric stranding axial image 121 Appendix is mildly thickened, for instance axial image 162, measuring up to 10 mm No bowel obstruction No diverticulitis Contracted urinary bladder Left hip bipolar hemiarthroplasty with satisfactory alignment Moderate to advanced narrowing right hip joint IMPRESSION: The appendix is mildly thickened, measuring up to 10 mm, recommend repeat CT scan abdomen pelvis post intravenous contrast as clinically warranted There is posterior left perinephric stranding which may relate to pyelonephritis, which can also be best assessed with follow-up CT scan of the abdomen postcontrast Medications / Prescriptions Medications or Prescriptions considered but not ordered:: na Medication administrations:: Medication Administration History Discontinued Medications Sodium Chloride (Ns) 1,000 mls @ 999 mls/hr IV .Q1H1M ONE Stop: 01/01/25 20:07 Last Infusion: 01/01/25 21:42 Dose: Infused Documented By: Admin: 01/01/25 20:41 Dose: 999 mls/hr Documented By: WILLIAM as above Consultations Consultation(s) initiated? (list below): No Diagnosis Chest Pain Differential Diagnosis: other (DKA, hyperosmolar state, hyperglycemia) Most likely diagnosis given after review of the tests above:: See clinical impression below Admission Indicated Admission indicated?: not indicated Admission Request Was there a request for admission?: No Disposition Plan Disposition Plan: Discharge Discharge Attestation Discharge Attestation: The patient and all family members were given an opportunity to ask questions and understood the discharge instructions. Discharge instructions specifically effects, indications for sooner follow up or return to the emergency department, and the expected course of current diagnosis. Patient condition: Stable Discharge Plan Plan Patient Disposition: HOME (Self Care) Disposition Comment: Stable for discharge home Patient condition on transfer: Stable Prescriptions/Referrals Prescriptions/Med Rec: No Action carvedilol 25 mg tablet 25 mg PO BID Rx Instructions: must administer with a meal/food memantine 10 mg tablet 10 mg PO BID metformin 1,000 mg tablet 1,000 mg PO BID tamsulosin 0.4 mg capsule 0.8 mg PO QHS finasteride 5 mg tablet 5 mg PO QDAY donepezil 5 mg tablet 5 mg PO QDAY duloxetine 60 mg capsule,delayed release(DR/EC) 60 mg PO QDAY insulin glargine [Lantus U-100 Insulin] 100 unit/mL solution 40 unit SUBCUT QDAY Rx Instructions: sliding scale Humulin 70/30 U-100 Insulin 100 unit/mL (70-30) suspension 30 unit SUBCUT QDAY Rx Instructions: sliding scale lovastatin 40 mg tablet 40 mg PO QPM Patient Comments: LANDRY MCINTYRE ELLIE NASH [facility] D [facility] [employer] gabapentin 100 mg capsule 300 mg PO QDAY Patient Comments: TAKE 1 CAPSULE 3 TIMES A DAY BY ORAL ROUTE FOR 30 DAYS. lisinopril 10 mg tablet 10 mg PO DAILY oxybutynin chloride 5 mg Tablet 5 mg PO BID Xarelto 15 mg Tablet 15 mg PO QDAY Rx Instructions: must administer with evening meal Referrals: Stefano Galicia[facility]), [Primary Care Provider] - In 1 week Problem List Clinical Impression: Abdominal pain, Acute hyperglycemia Patient/Caregiver Discharge Instructions Discharge Activity: activity as tolerated Diet Instructions: No restrictions Education Materials: High Blood Sugar (Hyperglycemia), What Is Appendicitis?, ED Abdominal Pain Appendx Poss, ED Diabetes with High Blood Sugar Additional Instructions: Please return to the emergency department right away if you develop increasing abdominal pain, nausea and/or vomiting. These may be signs that you are developing an acute appendicitis which we spoke about at length. You should take your normal diabetes medications when you get home. Be sure to check your blood sugars tomorrow morning and often tomorrow. Feel free to return to the ER if your blood sugars are concerning really high or if you have any other concerns. It is important that you follow-up with your primary care doctor within the next several days. Please let them know that you came to the emergency department and that you had multiple tests including a CT of your abdomen and pelvis. Print Language: Cameroonian Stand Alone Forms: [employer] Award Info., Patient Portal Info Letter
[2025-01-01] MEDS: SODIUM CHLORIDE 0.9% 1000 ML 1,000 ML 999 ML IV (20:41)
[2025-01-01 21:00] VITALS: BP 169/90; PULSE 72; RESP 18; O2SAT 100
--- NOTE | 2025-01-01 22:50 | PC.NURSE ---
Dr. Vasquez in room talking to son/pt with regards to results and plan of care.
[2025-01-01 22:51] VITALS: BP 128/65; PULSE 70; RESP 18; TEMP 36.8; O2SAT 99
== END 2025-01-01 23:23 | disposition home or self-care (01) ==
PROVIDERS: Nurse Practitioner Primary Care; Emergency Provider Emergency Medicine; PCP Family Medicine
DX: E11.65 Type 2 diabetes mellitus with hyperglycemia (principal); R10.84 Generalized abdominal pain; R07.9 Chest pain, unspecified; R94.31 Abnormal electrocardiogram [ECG] [EKG]; Z95.0 Presence of cardiac pacemaker; I10 Essential (primary) hypertension; E78.00 Pure hypercholesterolemia, unspecified; I48.91 Unspecified atrial fibrillation; Z79.84 Long term (current) use of oral hypoglycemic drugs; Z79.01 Long term (current) use of anticoagulants; Z79.4 Long term (current) use of insulin
CPT/HCPCS: 36415; 71046; 74176; 80053; 81001; 82010; 82803; 83690; 83735; 83880; 84484; 85025; 85610; 85730; 93005; 99284; J7030

== ENCOUNTER → 2025-01-03 | Outpatient (CLI) | payer MEDICARE, MEDICAID, SELFPAY ==
[2025-01-03 14:31] LABS: Anion Gap 8 (7-16); BUN/Creatinine Ratio 42 Ratio (12-20); Blood Urea Nitrogen 50 mg/dL (9-23); Calcium 9.4 mg/dL (8.3-10.6); Carbon Dioxide 29.9 mMol/L (20.0-31.0); Chloride 96 mMol/L (98-107); Creatinine (Component) 1.2 mg/dL (0.6-1.3); Glucose 307 mg/dL (74-106); Osmolality,Calculated 293 (275-295); Potassium 4.1 mMol/L (3.4-5.1); Sodium 134 mMol/L (136-145); eGFR > 60 See Note
--- NOTE | 2025-01-03 15:12 | XR_ITS ---
Examination: CT abdomen with intravenous contrast CT pelvis with intravenous contrast 2-D coronal reconstructions 2-D sagittal reconstructions Date and time of exam:January 03, 2025, 1537 hours INDICATIONS: Right lower abdominal pain beginning 3 days ago. CTDI: vol (mGy) 12.9 DLP: (mGycm) 845 Technique: Multiple axial sections of the abdomen and pelvis have been obtained. 64 slice high-resolution scanner used. 3 mm axial sections have been obtained, post intravenous injection of 60 cc [id number] 2-D sagittal, coronal reconstructions obtained. Low dose protocols were performed. One or more of the following dose reduction techniques were used; automated exposure control, adjustment of the mA and/or KV according to patient size, use of iterative reconstruction technique. Findings: No solid liver lesions Absent gallbladder Spleen is not enlarged No pancreatic or adrenal mass Posterior left perinephric stranding No renal or ureteral calculi, no hydronephrosis Abdominal aortic calcification no aneurysmal dilatation Absent appendix No pericecal inflammatory change No bowel obstruction Urinary bladder wall thickening up to 4 mm Left hip arthroplasty generates artifacts in the pelvis Transverse process dimension 4.3 cm IMPRESSION: Posterior left perinephric stranding, consider urinary tract infection Cystitis pattern. Absent appendix No bowel obstruction
== END | disposition home or self-care (01) ==
LOC: CCTX 13:48
PROVIDERS: PCP Family Medicine; Referring Provider Nurse Practitioner Family; Visit Provider Nurse Practitioner Family
DX: R10.31 Right lower quadrant pain (principal)
CPT/HCPCS: 36415; 74177; 80048; A4649; Q9967

== ENCOUNTER → 2025-02-21 | Outpatient (CLI) | payer MEDICARE, MEDICAID, SELFPAY ==
--- NOTE | 2025-02-21 09:00 | XR_ITS ---
Examination: Duplex scan of the lower extremity, unilateral right complete Date and time of exam: February 21, 2025 0920 hours INDICATIONS: Right leg pain beginning 3 months ago Technique: Duplex scan of the extremity veins using B-mode/grayscale imaging and Doppler spectral analysis and color flow Attention is directed to internal echogenicity, compression and augmentation involving these veins, color flow assessment, spectral analysis Findings: Positive for acute nonocclusive thrombus involving the mid right superficial femoral vein and right peroneal vein IMPRESSION: Positive for acute nonocclusive thrombus involving the mid right superficial femoral vein and right peroneal vein
[2025-02-21 10:38] LABS: Basophils # (Auto) 0.1 Thou/mm3 (0.0-0.2); Basophils % (Auto) 1 % (0-2.5); Eosinophils # (Auto) 0.1 Thou/mm3 (0.0-0.5); Eosinophils % (Auto) 1 % (0-10); Hematocrit 38.3 % (41.0-53.0); Hemoglobin 13.2 g/dL (13.5-16.0); Immature Granulocytes % (Auto) 0 % (0-0); Immature Granulocytes Auto 0.01 Thou/mm3 (0.00-0.00); Lymphocytes % (Auto) 17 % (10-50); Mean Corpuscular HGB Conc 34.5 g/dl (31.0-37.0); Mean Corpuscular Hemoglobin 31.4 pg (25.0-35.0); Mean Corpuscular Volume 91 fL (80-100); Monocytes # (Auto) 0.5 Thou/mm3 (0.0-0.8); Monocytes % (Auto) 8 % (0-12); Neutrophils # (Auto) 4.6 Thou/mm3 (1.8-7.7); Neutrophils % (Auto) 73 % (37-80); Nucleated Red Blood Cell % 0 /100 WBC (0); Platelet Count 235 Thou/mm3 (140-440); RDW Standard Deviation 47.6 fL (35.1-43.9); Red Blood Count 4.21 Miln/mm3 (4.50-5.90); White Blood Count 6.3 Thou/mm3 (3.8-10.6)
[2025-02-21 10:45] LABS: Glucose Estimated Average 212 mg/dL (80-131)
[2025-02-21 11:01] LABS: Alanine Aminotransferase 18 U/L (10-49); Albumin, Serum 4.4 gm/dL (3.4-4.8); Albumin/Globulin Ratio 1.6 (1.2-2.2); Alkaline Phosphatase 76 U/L (46-116); Anion Gap 10 (7-16); Aspartate Amino Transferase 21 U/L (0-34); BUN/Creatinine Ratio 21 Ratio (12-20); Bilirubin,Total 0.7 mg/dL (0.3-1.2); Blood Urea Nitrogen 15 mg/dL (9-23); Calcium 8.9 mg/dL (8.3-10.6); Calcium (Corrected) 8.9 mg/dL (8.5-10.1); Carbon Dioxide 25.6 mMol/L (20.0-31.0); Chloride 106 mMol/L (98-107); Creatinine (Component) 0.7 mg/dL (0.6-1.3); Globulin 2.8 gm/dL (2.3-3.5); Glucose 95 mg/dL (74-106); Osmolality,Calculated 283 (275-295); Potassium 4.4 mMol/L (3.4-5.1); Sodium 142 mMol/L (136-145); Total Protein 7.2 gm/dL (5.7-8.2); eGFR > 60 See Note
[2025-02-21 11:51] LABS: Hepatitis C Antibody Non Reactive (Non React); Vitamin D 25 Hydroxy Total 81.8 ng/mL (7.3-40.2)
== END | disposition home or self-care (01) ==
LOC: CDIM 08:57 → COPL 09:53
PROVIDERS: Internal Medicine; PCP Nurse Practitioner Family; Referring Provider Nurse Practitioner Family; Visit Provider Radiology Diagnostic Radiology
DX: I82.411 Acute embolism and thrombosis of right femoral vein (principal); I82.451 Acute embolism and thrombosis of right peroneal vein; E67.3 Hypervitaminosis D; I10 Essential (primary) hypertension; E11.65 Type 2 diabetes mellitus with hyperglycemia; Z11.59 Encounter for screening for other viral diseases
CPT/HCPCS: 36415; 80053; 82306; 83036; 85025; 86803; 93971

== ENCOUNTER → 2025-03-24 | Outpatient (BNVA) | payer MEDICARE, MEDICAID, SELFPAY | END | disposition home or self-care (01) | PROVIDERS: PCP Family Medicine; Referring Provider Family Medicine; Visit Provider Urology | DX: N40.1 Benign prostatic hyperplasia with lower urinary tract symptoms (principal); N13.8 Other obstructive and reflux uropathy; N32.81 Overactive bladder; E11.9 Type 2 diabetes mellitus without complications; I10 Essential (primary) hypertension; I25.10 Atherosclerotic heart disease of native coronary artery without angina pectoris; Z95.0 Presence of cardiac pacemaker; E66.01 Morbid (severe) obesity due to excess calories; Z68.38 Body mass index [BMI] 38.0-38.9, adult; I48.91 Unspecified atrial fibrillation; E78.00 Pure hypercholesterolemia, unspecified; J44.9 Chronic obstructive pulmonary disease, unspecified; K21.9 Gastro-esophageal reflux disease without esophagitis | CPT/HCPCS: 81003; 99212; G0463 ==

== ENCOUNTER 2025-05-19 19:36 | Emergency (ER) | payer MEDICARE, MEDICAID, SELFPAY ==
[2025-05-19 19:40] VITALS: BMI 33.7
[2025-05-19 19:41] VITALS: BP 124/71; PULSE 84; RESP 18; TEMP 36.7; O2SAT 98
[2025-05-19 19:46] VITALS: PULSE 88; O2SAT 99
--- NOTE | 2025-05-19 20:06 | EDNOTE_ITS ---
ED Fall Injury RME/HPI General Chief Complaint: Fall Stated Complaint: FALL Time Seen by Provider: 05/19/25 20:07 Arrival date/time: 05/19/25 19:36 RME / HPI RME / HPI Narrative: See MDM for HPI documentation. Related Data Home Medications ?Medication ?Instructions ?Recorded ?Confirmed gabapentin 100 mg capsule 300 mg PO QDAY 06/24/2103/03 lovastatin 40 mg tablet 40 mg PO QPM 06/24/21 insulin glargine 100 unit/mL 40 unit subcut QDAY 10/0703/24/25 subcutaneous solution (Lantus U-100 Insulin) insulin human U-100 NPH-regulr 30 unit subcut QDAY 03/2303/24/25 70-30 mix 100 unit/mL subcutaneous susp (Humulin 70/30 U-100 Insulin) lisinopril 10 mg tablet 10 mg PO DAILY 11/12/2103/03 carvedilol 25 mg tablet 25 mg PO BID 04/26/22 memantine 10 mg tablet 10 mg PO BID 04/26/22 finasteride 5 mg tablet 5 mg PO QDAY 02/28/23 metformin 1,000 mg tablet 1,000 mg PO BID 02/28/23 tamsulosin 0.4 mg capsule 0.8 mg PO QHS 02/28/2303/24 oxybutynin chloride 5 mg tablet 5 mg PO BID 03/30/23 0 03/24/25 rivaroxaban 15 mg tablet (Xarelto) 15 mg PO QDAY 03/3003/24/25 donepezil 5 mg tablet 5 mg PO QDAY 08/28/23 duloxetine 60 mg capsule,delayed 60 mg PO QDAY 4 03/24/25 release Allergies Allergy/AdvReac Type Severity Reaction Status Date / Time No Known Allergies Allergy Verified 03/24/25 14:15 Review of Systems Review of Systems Systems Reviewed: All systems reviewed, normal except as documented Past Medical History Past Medical History NEUROLOGIC: Negative Neurological Disorders or Seizures CARDIAC: Positive Atrial Fibrillation, Hypercholesterolemia and Hypertension; Negative Cardiac Disorders or Congestive Heart Failure RESPIRATORY: Positive Chronic Obstructive Pulmonary Disease (COPD) and Sleep Apnea; Negative Asthma GASTROINTESTINAL: Positive Gastrointestinal Disorders, Gastroesophageal Reflux Disease and Obesity; Negative Hepatitis GENITOURINARY: Positive Genitourinary Disorders and Benign Prostatic Hyperplasia; Negative Renal Disease MUSCULOSKELETAL: Positive Musculoskeletal Disorders and Fractures ENT: Positive Cataracts ENDOCRINE: Positive Endocrine Disorders and Diabetes Mellitus Type 2; Negative Diabetes Mellitus Type 1 HEMATOLOGIC: Positive Anemia; Negative Blood Disorders, Sickle Cell Disease or Clotting Problems OTHER HISTORY: Positive Hospitalization and Falls; Negative Autoimmune Disease, Shingles, Blood Transfusions, Blood Transfusion Reaction, Anesthesia Reactions, Organ Transplant, Chemotherapy, Radiation T herapy, MRSA, Chicken Pox, Measles, Mumps or Cancer Family History FAMILY HISTORY: Positive Family Cardiac Disorders Surgical History SURGICAL: Positive Cardiac Surgery, Pacemaker and Joint Replacement; Negative Endocrine Surgery, Abdominal Surgery, Neurologic Surgery, Vasectomy or Organ Transplant Social History SMOKING STATUS: Never smoker ED Exam Narrative Physical exam: See MDM for physical exam findings. Course Quality Measures none Orders Category Date Time Status Bedside COVID-19 Antigen Test NOW Care 05/19/25 20:23 Completed Bedside Influenza A&B Antigen Test NOW Care 05/19/25 20:23 Completed Saline [Insert IV] NOW Care 05/19/25 20:20 Completed Transfer to another facility [Transfer/Discharge] Stat Discharge 05/19/25 22:[address] pelvis wo con Stat Exams 05/19/25 20:23 Completed XR chest 1V portable Stat Exams 05/19/25 20:23 Completed XR femur RT 2V Stat Exams 05/19/25 20:23 Completed ABG [Arterial Blood Gas] Stat Lab 05/19/25 21:12 Completed BNP [B-Type Natriuretic Peptide] Stat Lab 05/19/25 20:33 Completed Bilirubin,Direct Stat Lab 05/19/25 20:33 Completed CBC Stat Lab 05/19/25 20:33 Completed CMP [Comprehensive Metabolic Panel] Stat Lab 05/19/25 20:33 Completed Magnesium Stat Lab 05/19/25 20:33 Completed PT [Prothrombin Time with INR] Stat Lab 05/19/25 20:33 Completed PTT [Partial Thromboplastin Time] Stat Lab 05/19/25 20:33 Completed Troponin I Stat Lab 05/19/25 20:33 Completed Insulin Regular Med 05/19/25 21:34 Discontinued 8 unit SC X1 ONE Levalbuterol Rt [Xopenex Rt Trena] Med 05/19/25 20:20 Discontinued 5 mg INH X1 ONE MethylPREDNISolone.* [SoluMEDROL Inj] Med 05/19/25 20:20 Discontinued 125 mg IVP X1 ONE Morphine Inj Med 05/19/25 20:20 Discontinued 4 mg IVP X1 ONE Ondansetron Inj [Zofran Inj] Med 05/19/25 20:20 Discontinued 4 mg IVP X1 ONE Sodium Chloride Rt Trena 0.9% [NS Rt Trena 0.9%] Med 05/19/25 20:20 Discontinued 3 ml INH PRN PRN Vital Signs Vital signs: Vital Signs Temperature 98.1 F 05/19/25 19:41 Pulse Rate 84 05/19/25 19:41 Respiratory Rate 18 05/19/25 19:41 Blood Pressure 124/71 05/19/25 19:41 Pulse Oximetry (%) 98 05/19/25 19:41 Oxygen Delivery Method Room Air 05/19/25 19:41 Fall MDM Narrative MDM Narrative:: This section includes all my notes and documentations, including HPI, PE, and ED course. Kimani Ramírez MD HPI: 79yo male BIBA from home here after a fall just [employer]. Patient was getting up off the soda when he twisted and fell, landing on his right hip. Patient did hit his head on furniture, but no LOC. Has severe right hip pain. No headache, neck pain, chest pain, or abdominal pain. No other complaints reported. ROS: All negative except as documented in HPI. Physical Exam: General: Alert and oriented. No acute distress remaining still. Eyes: Conjunctivae and lids clear. EOMI. PERRL. ENT: No signs of head trauma. Neck: Supple. No tenderness. Heart: RRR. Lungs: No respiratory distress. Decreased air movement with wheezing. Chest: No tenderness. Abdomen: Soft and nontender. Normal bowel sounds. No distension. No rebound or guarding. Back: No tenderness. Skin: Warm and dry. Neuro: Alert and oriented X 3. Cranial Nerves II-XII grossly intact. No peripheral motor deficits. Musculoskeletal: RLE is shortened and externally rotated with right hip tenderness. All other major joints and bones are not tender with no limited ROM. I reviewed EMS notes. I reviewed all diagnostic test results. My interpretation of the EKG is paced rhythm. My interpretation of the right femur hip x-ray is acute displaced right femoral neck fracture. My interpretation of the chest x-ray is NAD. My review of the CT pelvis report is acute displaced right femoral neck fracture. Blood tests are unremarkable except glucose 271. At this point, diagnoses include: Right hip fracture Hyperglycemia COPD Treatment here included Solumedrol, Xopenex, Morphine, Zofran, Insulin. Patient remained stable. I discussed the case with Dr. Dasilva, orthopedic surgeon from [facility] [address]. About the presentation and exam and diagnostics and treatments here. And need of further care in the hospital there. Will accept the patient. Kimani Ramírez MD Patient data External records reviewed:: [facility] previous records (Per chart review, patient was seen here on 07/15/24 for a fall.) and EMS form Clinical information provided by:: patient Social determinants that could affect healthcare access:: none Patient has the following chronic illnesses:: aFib, HTN, HLD, COPD, DM How is presenting disease/condition affected by chronic disease/condition?: uneffected by Evaluation data The following diagnostics were reviewed and interpreted by me:: lab results, radiology exam(s) and EKG tracing(s) (My interpretation of the EKG: Paced rhythm (84 bpm). Kimani Ramírez MD) Lab and/or radiology exams considered but not ordered:: none Interpretation Summary: I reviewed all diagnostic test results. My interpretation of the EKG is paced rhythm. My interpretation of the right femur hip x-ray is acute displaced right femoral neck fracture. My interpretation of the chest x-ray is NAD. My review of the CT pelvis report is acute displaced right femoral neck fracture. Blood tests are unremarkable except glucose 271. Medications / Prescriptions Medications or Prescriptions considered but not ordered:: none Medication administrations:: Medication Administration History Discontinued Medications Insulin Human Regular (Insulin Hum Regular 1 Unit/0.01 Ml (Per Unit)) 8 unit SC X1 ONE Stop: 05/19/25 21:35 Last Admin: 05/19/25 21:50 Dose: 8 unit Documented By: SF Co-signed By: MARCIE Levalbuterol HCl (Levalbuterol Rt 1.25 Mg/0.5 Ml Nebu) 5 mg INH X1 ONE Stop: 05/19/25 20:21 Last Admin: 05/19/25 21:06 Dose: 5 mg Documented By: Methylprednisolone Sodium Succinate (Methylprednisolone Sod Succ 62.5 Mg/Ml 2ml Vial) 125 mg IVP X1 ONE Stop: 05/19/25 20:21 Last Admin: 05/19/25 20:41 Dose: 125 mg Documented By: SF Morphine Sulfate (Morphine Sulf Inj 10 Mg/Ml Vial) 4 mg IVP X1 ONE Stop: 05/19/25 20:21 Last Admin: 05/19/25 21:47 Dose: 4 mg Documented By: SF Ondansetron HCl (Ondansetron Inj 2 Mg/Ml Inj 2 Ml) 4 mg IVP X1 ONE; Protocol Stop: 05/19/25 20:21 Last Admin: 05/19/25 21:48 Dose: 4 mg Documented By: SF Sodium Chloride (Sodium Chloride Rt Trena 0.9% 3 Ml Nebu) 3 ml INH PRN PRN PRN Reason: SOLN Stop: 06/18/25 20:19 Last Admin: 05/19/25 21:06 Dose: 3 ml Documented By: Solumedrol, Xopenex, Morphine, Zofran, Insulin Consultations Consultation(s) initiated? (list below): Yes Consultation #1 (Physician, Specialty, Details): I discussed the case with Dr. Dasilva, orthopedic surgeon from [facility] [address]. About the presentation and exam and diagnostics and treatments here. And need of further care in the hospital there. Will accept the patient. Time: 22:24 Diagnosis Fall Differential Diagnosis: syncope, dislocation of shoulder region, fracture of wrist, compression fracture, concussion with loss of consciousness, concussion without loss of consciousness and other (Hip fracture) Most likely diagnosis given after review of the tests above:: Fracture of right hip Admission Indicated Admission indicated?: not indicated Explain why admission is indicated or not indicated:: No orthopedic service at this facility currently. Admission Request Was there a request for admission?: No Disposition Plan Disposition Plan: Transfer ([facility] [address]) Discharge Plan Plan Patient Disposition: Xfer Acute Care [facility] Facility Pt Being Transferred to: [facility] [address] Service Needed for Transfer: Orthopedics Prescriptions/Referrals Prescriptions/Med Rec: No Action carvedilol 25 mg tablet 25 mg PO BID Rx Instructions: must administer with a meal/food memantine 10 mg tablet 10 mg PO BID metformin 1,000 mg tablet 1,000 mg PO BID tamsulosin 0.4 mg capsule 0.8 mg PO QHS finasteride 5 mg tablet 5 mg PO QDAY donepezil 5 mg tablet 5 mg PO QDAY duloxetine 60 mg capsule,delayed release(DR/EC) 60 mg PO QDAY insulin glargine [Lantus U-100 Insulin] 100 unit/mL solution 40 unit SUBCUT QDAY Rx Instructions: sliding scale Humulin 70/30 U-100 Insulin 100 unit/mL (70-30) suspension 30 unit SUBCUT QDAY Rx Instructions: sliding scale lovastatin 40 mg tablet 40 mg PO QPM Patient Comments: LANDRY Suarez [place] [employer] gabapentin 100 mg capsule 300 mg PO QDAY Patient Comments: TAKE 1 CAPSULE 3 TIMES A DAY BY ORAL ROUTE FOR 30 DAYS. lisinopril 10 mg tablet 10 mg PO DAILY oxybutynin chloride 5 mg Tablet 5 mg PO BID Xarelto 15 mg Tablet 15 mg PO QDAY Rx Instructions: must administer with evening meal Referrals: No Primary/Family,Physician [Primary Care Provider] - In 1 week Problem List Clinical Impression: Fracture of right hip, Hyperglycemia, COPD (chronic obstructive pulmonary disease) Patient/Caregiver Discharge Instructions Print Language: Luxembourgish Stand Alone Forms: [facility] Award Info., Patient Portal Info Letter
--- NOTE | 2025-05-19 20:23 | XR_ITS ---
Examination: CT pelvis without intravenous contrast. 2-D sagittal and coronal reconstructions. Date and time of exam:May 19, 2025 10:16 PM INDICATIONS: Patient fell today with injury to the right hip, right hip pain CTDI: vol (mGy) :14.9 DLP: (mGycm) : 450 Technique: Multiple 3 mm axial sections of the pelvis have been obtained with the 64 slice high resolution scanner. 2-D sagittal and coronal reconstructions. Low dose protocols were performed. One or more of the following dose reduction techniques were used; automated exposure control, adjustment of the mA and/or KV according to patient size, use of iterative reconstruction technique. Findings: No pelvic hematoma Prominent osteopenia Sacral segments bones of the pelvis including anterior rami intact Acute displaced right femoral neck fracture Left hip hemiarthroplasty satisfactory alignment IMPRESSION: Acute displaced right femoral neck fracture
--- NOTE | 2025-05-19 20:23 | XR_ITS ---
Examination: Right femur 2 views TECHNIQUE: AP lateral right femur 2 views Date and time: May 19, 2025, 2047 hours INDICATIONS: Ground-level fall today with injury to the right hip, right hip pain. FINDINGS: Acute displaced fracture right femoral neck Shaft of the femur are intact IMPRESSION: Acute displaced fracture right femoral neck
--- NOTE | 2025-05-19 20:23 | XR_ITS ---
Examination: AP chest single view 91 AP portable semiupright chest single view Date and time: May 19, 2025, 2040 hours, comparison January 01, 2025. INDICATIONS: Shortness of breath today. FINDINGS: Mild enlargement cardiac contour. Stable position cardiac leads. Mild opacity at the left base No pulmonary edema IMPRESSION: Scarring versus mild pneumonia left base, clinical correlation advised
[2025-05-19] MEDS: MethylPREDNISolone SOD SUCC 62.5 MG/ML 2ML VIAL 125 MG IVP (20:41)
[2025-05-19 20:44] LABS: Basophils # (Auto) 0.0 Thou/mm3 (0.0-0.2); Basophils % (Auto) 0 % (0-2.5); Eosinophils # (Auto) 0.0 Thou/mm3 (0.0-0.5); Eosinophils % (Auto) 0 % (0-10); Hematocrit 36.0 % (41.0-53.0); Hemoglobin 12.2 g/dL (13.5-16.0); Immature Granulocytes Auto 0.05 Thou/mm3 (0.00-0.00); Lymphocytes # (Auto) 1.0 Thou/mm3 (1.0-4.8); Lymphocytes % (Auto) 10 % (10-50); Mean Corpuscular HGB Conc 33.9 g/dl (31.0-37.0); Mean Corpuscular Hemoglobin 30.7 pg (25.0-35.0); Mean Corpuscular Volume 91 fL (80-100); Monocytes # (Auto) 0.7 Thou/mm3 (0.0-0.8); Monocytes % (Auto) 7 % (0-12); Neutrophils # (Auto) 8.6 Thou/mm3 (1.8-7.7); Neutrophils % (Auto) 82 % (37-80); Nucleated Red Blood Cell # 0.00 Thou/mm3 (0.00-0.00); Nucleated Red Blood Cell % 0 /100 WBC (0); Platelet Count 229 Thou/mm3 (140-440); RDW Standard Deviation 46.3 fL (35.1-43.9); Red Blood Count 3.98 Miln/mm3 (4.50-5.90); White Blood Count 10.4 Thou/mm3 (3.8-10.6)
[2025-05-19 20:59] LABS: INR 1.5 (0.9-1.3); Partial Thromboplastin Time 43.0 Seconds (22.0-36.0); Prothrombin Time 16.1 Seconds (9.0-12.2)
[2025-05-19] MEDS: SODIUM CHLORIDE RT SOL 0.9% 3 ML NEBU INH (21:06)
[2025-05-19] MEDS: LEVALBUTEROL RT 1.25 MG/0.5 ML NEBU 5 MG INH (21:06)
[2025-05-19 21:07] LABS: B-Type Natriuretic Peptide 140 pg/mL (0-100)
[2025-05-19 21:10] LABS: Alanine Aminotransferase 16 U/L (10-49); Albumin, Serum 3.9 gm/dL (3.4-4.8); Albumin/Globulin Ratio 1.8 (1.2-2.2); Alkaline Phosphatase 71 U/L (46-116); Anion Gap 12 (7-16); Aspartate Amino Transferase 21 U/L (0-34); BUN/Creatinine Ratio 32 Ratio (12-20); Bilirubin,Direct 0.1 mg/dL (0.0-0.3); Bilirubin,Total 0.3 mg/dL (0.3-1.2); Blood Urea Nitrogen 38 mg/dL (9-23); Calcium 9.2 mg/dL (8.3-10.6); Calcium (Corrected) 9.3 mg/dL (8.5-10.1); Carbon Dioxide 23.9 mMol/L (20.0-31.0); Chloride 106 mMol/L (98-107); Creatinine (Component) 1.2 mg/dL (0.6-1.3); Estimated Creatinine Clearance 55.5 mL/min (>60); Globulin 2.2 gm/dL (2.3-3.5); Glucose 271 mg/dL (74-106); Magnesium 1.7 mg/dL (1.6-2.6); Osmolality,Calculated 302 (275-295); Potassium 3.7 mMol/L (3.4-5.1); Sodium 142 mMol/L (136-145); Total Protein 6.1 gm/dL (5.7-8.2); Troponin I < 0.020 ng/mL (0.0-0.045); eGFR > 60 See Note
[2025-05-19 21:11] VITALS: PULSE 80; RESP 17; O2SAT 98
[2025-05-19 21:18] LABS: Base Excess -1 (-3-3); HCO3 23 mEq/L (20-26); O2 Saturation 95 % (91-98); PCO2 34 mmHg (32.0-48.0); PO2 71 mmHg (83-108); pH, Arterial 7.44 (7.35-7.45)
[2025-05-19 21:19] LABS: Allen Test Performed/OK; Inspired O2, VO2 Liters 3 L/min; Puncture Site Right Radial
[2025-05-19] MEDS: MORPHINE SULF INJ 10 MG/ML VIAL 4 MG IVP (21:47)
[2025-05-19] MEDS: ONDANSETRON INJ 2 MG/ML INJ 2 ML 4 MG IVP (21:48)
[2025-05-19] MEDS: INSULIN HUM REGULAR 1 UNIT/0.01 ML (PER UNIT) 8 UNIT SC (21:50)
[2025-05-19 22:06] VITALS: BP 156/76; PULSE 84; RESP 18; TEMP 36.4; O2SAT 96
--- NOTE | 2025-05-19 22:27 | PC.NURSE ---
THIS PT IS ACCEPTED TO [facility] BY DR. LEÓN BULL. THIS IS A ER:ER TRANSFER AND NUMBER FOR REPORT IS [phone]. TIMOTEO WAS THE FAILITY REP I SPOKE WITH FOR ACCEPTING INFO
--- NOTE | 2025-05-19 22:45 | PC.NURSE ---
REPORT GIVEN TO TESSY AT [facility]. AWAITING EMS ETA AT THIS TIME BEING SET UP BY CHARGE NURSE- [facility] AWARE NO ETA AT THIS TIME
--- NOTE | 2025-05-19 23:17 | PC.NURSE ---
PT IS BEING TRANSFERRED TO [facility] ER TO [facility] ETA 0030.
== END 2025-05-19 23:51 | disposition short-term general hospital (02) ==
PROVIDERS: Emergency Provider Emergency Medicine
DX: S72.001A Fracture of unspecified part of neck of right femur, initial encounter for closed fracture (principal); W19.XXXA Unspecified fall, initial encounter; J44.9 Chronic obstructive pulmonary disease, unspecified
CPT/HCPCS: 36415; 36600; 71045; 72192; 73552; 80053; 81001; 82248; 82803; 83735; 83880; 84484; 85025; 85610; 85730; 94640; 96374; 96375; 99284; J1815; J2270; J2405; J2919

== ENCOUNTER → 2025-10-01 | Outpatient (CLI) | payer MEDICARE, MEDICAID, SELFPAY ==
[2025-10-01 12:03] LABS: Basophils # (Auto) 0.1 Thou/mm3 (0.0-0.2); Basophils % (Auto) 1 % (0-2.5); Eosinophils # (Auto) 0.1 Thou/mm3 (0.0-0.5); Eosinophils % (Auto) 2 % (0-10); Hematocrit 39.6 % (41.0-53.0); Hemoglobin 13.0 g/dL (13.5-16.0); Immature Granulocytes Auto 0.03 Thou/mm3 (0.00-0.00); Lymphocytes # (Auto) 1.9 Thou/mm3 (1.0-4.8); Lymphocytes % (Auto) 24 % (10-50); Mean Corpuscular HGB Conc 32.8 g/dl (31.0-37.0); Mean Corpuscular Hemoglobin 29.8 pg (25.0-35.0); Mean Corpuscular Volume 91 fL (80-100); Monocytes # (Auto) 0.8 Thou/mm3 (0.0-0.8); Monocytes % (Auto) 10 % (0-12); Neutrophils # (Auto) 4.9 Thou/mm3 (1.8-7.7); Neutrophils % (Auto) 63 % (37-80); Nucleated Red Blood Cell # 0.00 Thou/mm3 (0.00-0.00); Nucleated Red Blood Cell % 0 /100 WBC (0); Platelet Count 306 Thou/mm3 (140-440); RDW Standard Deviation 45.3 fL (35.1-43.9); Red Blood Count 4.36 Miln/mm3 (4.50-5.90); White Blood Count 7.8 Thou/mm3 (3.8-10.6)
[2025-10-01 12:10] LABS: Glucose Estimated Average 203 mg/dL (80-131); Hemoglobin A1C 8.7 % Hgb (4.8-6.0)
[2025-10-01 12:22] LABS: Alanine Aminotransferase 14 U/L (10-49); Albumin, Serum 4.2 gm/dL (3.4-4.8); Albumin/Globulin Ratio 1.7 (1.2-2.2); Alkaline Phosphatase 80 U/L (46-116); Anion Gap 9 (7-16); Aspartate Amino Transferase 17 U/L (0-34); BUN/Creatinine Ratio 36 Ratio (12-20); Bilirubin,Total 0.4 mg/dL (0.3-1.2); Blood Urea Nitrogen 36 mg/dL (9-23); Calcium 9.2 mg/dL (8.3-10.6); Calcium (Corrected) 9.2 mg/dL (8.5-10.1); Carbon Dioxide 28.6 mMol/L (20.0-31.0); Cardiac Risk Estimate 3.5 RATIO (4.0-6.7); Chloride 102 mMol/L (98-107); Cholesterol 138 mg/dL (132-200); Creatinine (Component) 1.0 mg/dL (0.6-1.3); Globulin 2.5 gm/dL (2.3-3.5); Glucose 152 mg/dL (74-106); HDL Cholesterol 39 mg/dL (40-60); LDL Cholesterol,Calculated 66 mg/dL (0-130); Osmolality,Calculated 290 (275-295); Potassium 5.1 mMol/L (3.4-5.1); Sodium 140 mMol/L (136-145); Total Protein 6.7 gm/dL (5.7-8.2); Triglycerides 164 mg/dL (30-150); eGFR > 60 See Note
[2025-10-01 12:24] LABS: Creatinine MALB Rnd Ur 65 mg/dL (30-125); Microalbumin, Random Urine < 3 mg/L (0-300)
== END | disposition home or self-care (01) ==
LOC: COPL 10:35
PROVIDERS: PCP Family Medicine; Referring Provider Nurse Practitioner Family; Visit Provider Nurse Practitioner Family
DX: E11.65 Type 2 diabetes mellitus with hyperglycemia (principal)
CPT/HCPCS: 36415; 80053; 80061; 82043; 82570; 83036; 85025